=== PATIENT | male | born 1950 | race Caucasian/White ===

== ENCOUNTER 2017-03-28 02:18 | Emergency (ER) | payer MEDICARE, OTHER ==
--- NOTE | ~2017-03-28 | EKG ---
PATIENT: KRYSTLE CALZADA UNIT #: [id number] Ventricular Rate: 72 BPM Atrial Rate: 72 BPM P-R Interval: 146 ms QRS Duration: 108 ms Q-T Interval: 420 ms QTC Calculation(Bezet): 459 ms P [place]: 58 degrees Calculated R [place]: -44 degrees Calculated T [place]: 76 degrees Diagnosis Line: Normal sinus rhythm Diagnosis Line: Left axis deviation Diagnosis Line: Nonspecific ST and T wave abnormality Diagnosis Line: Abnormal ECG Diagnosis Line: When compared with ECG of 30-NOV-2016 06:54, Diagnosis Line: Premature ventricular complexes are no longer Diagnosis Line: Present Diagnosis Line: Inverted T waves have replaced nonspecific T wave Diagnosis Line: abnormality in Anterior leads Diagnosis Line: Confirmed by ELMIRA VU MD ([id number]) on Diagnosis Line: 03/29/2017 1:28:54 PM INTERPRETING MD: MIRELLA POSEY
--- NOTE | ~2017-03-28 | CR132 ---
[facility] A Service of [facility] RADIOLOGY TEXT RESULTS PATIENT: KRYSTLE CALZADA LOCATION: [facility] : 46 UNIT #: [id number] AGE: [address]: Allen Cárdenas MD SEX: M ORDER DR: [id number] [facility] [address] [place], [place] [address] [id number] MR#: [id number] Acc #: [id number] NAME: KRYSTLE CALZADA. : 1950 SEX: M STUDY DATE/TIME: 03/28/2017 0259 UNIT: [facility] ROOM: STUDY DESCRIPTION: CR Forearm 2 View Lt Attending Physician: Allen Cárdenas M.D. Ordering Physician: Allen Cárdenas M.D. Primary Care Physician: John Ceballos Jr., M.D. MEDICAL IMAGING REPORT This report is preliminary unless electronic signature is present EXAM Left forearm, 03/28 at 0259. INDICATION Forearm and wrist pain after a seizure tonight. FINDINGS 2 views of the left forearm were obtained. Arterial calcifications noted in the soft tissues. No fracture or malalignment is seen. There are 2 radiopaque foreign bodies near the elbow. 1 is adjacent to the proximal ulna on the medial side and the other is adjacent to the lateral epicondyle of the distal humerus. IMPRESSION No acute fracture or malalignment. 2 radiopaque foreign bodies, 1 near the proximal ulna on the medial side and 1 near the lateral epicondyle of the distal humerus. Correlate clinically for etiology. Dictated by... Galileo Patel Jr., M.D. THIS IS AN ELECTRONICALLY VERIFIED REPORT Galileo Patel Jr., M.D. at 03/28/2017 5:19 PM CHANCE/arnaldo TD: 03/28/2017 10:39 JOB #: [id number] MEDICAL IMAGING REPORT Page 1 of 1 COPY
--- NOTE | ~2017-03-28 | CT71 ---
[facility] A Service of [facility] RADIOLOGY TEXT RESULTS PATIENT: KRYSTLE CALZADA LOCATION: [facility] : 46 UNIT #: [id number] AGE: [address]: Allen Cárdenas MD SEX: M ORDER DR: [id number] [facility] [address] [place], [place] [address] [id number] E MR#: [id number] Acc #: [id number] NAME: KRYSTLE CALZADA. : 1950 SEX: M STUDY DATE/TIME: 03/28/2017 02:30 UNIT: [facility] ROOM: STUDY DESCRIPTION: CT Head Wo Contrast Attending Physician: Allen Cárdenas M.D. Ordering Physician: Allen Cárdenas M.D. Primary Care Physician: John Ceballos Jr., M.D. MEDICAL IMAGING REPORT This report is preliminary unless electronic signature is present EXAM Head CT 03/28/2017 at 04:15 hours. INDICATIONS Status post seizure this evening. Subsequent headache. TECHNIQUE FINDINGS Axial images were obtained from base to vertex without contrast. This CT exam was performed with one or more of the following radiation dose reduction techniques: automatic exposure control, adjustment of mA and/or kV according to patient size, and iterative reconstruction. COMPARISON Comparison made with 11/30/2016. FINDINGS Generalized atrophy is stable. Ventricular size and configuration are normal. There is no acute infarct or hemorrhage. There are no masses. Atherosclerotic calcifications are noted in the carotid siphons and vertebral arteries. No skull fracture. IMPRESSION No acute intracranial findings. No skull fracture. No change from prior. Dictated by... Galileo Patel Jr., M.D. THIS IS AN ELECTRONICALLY VERIFIED REPORT Galileo Patel Jr., M.D. at 03/28/2017 5:19 PM RLK/gz TD: 03/28/2017 10:52 [facility] A Service of [facility] RADIOLOGY TEXT RESULTS PATIENT: KRYSTLE CALZADA LOCATION: [facility] : 46 UNIT #: [id number] AGE: [address]: Allen Cárdenas MD SEX: M ORDER DR: DELL #: [id number] MEDICAL IMAGING REPORT Page 1 of 1 COPY
[~2017-03-28 02:18] MED LIST: ALBUTEROL 0.5ML INH; ALBUTEROL MININEB NEB; ALBUTEROL1.25 MG/3 INH; ALDACTONE PO; ALPRAZOLAM ER2 MG PO; ALPRAZOLAM PO; ANDRODERM1 EAC1 TD; ANTARA PO; ANTARA30 MG PO; APRESOLINE10 MG PO; ASPIRIN EC81 M1 PO; ASPIRIN PO; ASPIRIN81 MG PO; ATORVASTATIN CA10 MG PO; AZITHROMYCIN250 MG PO; AZITHROMYCIN500 MG PO; BAYER ASPIRIN325 M1 PO; BUMEX1 MG PO; CARAFATE1 G PO; CARAFATE1 GM PO; CARAMEL FLAVOR30 ML MC; CARVEDILOL6.25 MG PO; COREG PO; COREG12.5 MG PO; COREG3.125 MG PO; DILANTIN PO; DUONEB NEB; FAMOTIDINE20 M1 PO; FENOFIBRATE134 MG PO; FERRO-TIME325 MG PO; FERROUS GLUCON325 M1 PO; FERROUS SULFATE PO; GLIPIZIDE10 MG PO; GLIPIZIDE2.5 MG/BO1 PO; GLUCOTROL PO; GLUCOTROL XL PO; GLUCOTROL XL10 MG PO; HYDRALAZINE HCL25 MG PO; IRON1 TA1 PO; ISOSORBIDE DINI30 MG PO; K-DUR10 MEQ PO; LANTUS100 U/ML SUBQ; LANTUS100 UNITS/ SUBQ; LASIX PO; LASIX20 MG PO; LASIX80 MG PO; LEVAQUIN PO; LEVAQUIN750 MG PO; LEVOTHYROXINE50 MC1 PO; LIPITOR PO; LIPITOR80 MG PO; LISINOPRIL PO; LISINOPRIL20 MG PO; LOMOTIL TABLET1 TAB PO; LORTAB 10-3251 EACH PO; LORTAB 10/500 T1 TAB PO; LOVAZA1 G PO; METFORMIN HCL500 M1 PO; METFORMIN PO; METHADONE HCL10 MG PO; METHADONE PO; NITROGLYCERIN0.3 MG SL; NORCO 10-325 TA1 TAB PO; NOVOLIN N100 UNIT/1 SUBQ; NOVOLIN R100 UNITS/ SQ; NOVOLIN R100 UNITS/ SUBQ; NOVOLOG100 U/ML SUBQ; OMEGA 3 500 SO1 EACH PO; OMEGA 3 FISH1 CAP.EC PO; OMEPRAZOLE20 M1 PO; OMEPRAZOLE40 MG PO; OMNICEF300 MG PO; OXYCODONE HCL40 MG PO; OXYCONTIN PO; OXYCONTIN SR PO; OXYCONTIN40 MG; OXYCONTIN40 MG PO; OXYCONTIN80 MG PO; OXYGEN; PHENERGAN PO; PHENERGAN PR; PHENERGAN12.5 MG PO; PLAVIX PO; POTASSIUM CHLO10 ME1 PO; PREDNISONE5 M1 PO; PRILOSEC PO; PRILOSEC20 M1 PO; PRINIVIL10 MG PO; PROMETHAZINE HC25 MG PO; PROMETHAZINE12.5 MG PO; RAMIPRIL5 MG PO; REGLAN PO; REGLAN10 MG PO; REGLAN5 MG PO; SERTRALINE HCL1 GM PO; SERTRALINE HCL100 M1 PO; SERTRALINE HCL100 MG PO; SOMA PO; SOMA250 MG PO; SYNTHROID0.05 MG PO; TOPROL XL PO; TRILIPIX135 MG PO; VITAMIN D50000 UNIT PO; XANAX XR2 MG PO; XANAX1 MG PO; XANAX2 MG PO; ZESTRIL5 MG PO; ZOCOR PO; ZOLOFT PO; ZOLOFT100 MG PO; ZOLPIDEM TARTRA10 MG PO; ZOLPIDEM TARTRAT5 MG PO
[2017-03-28 03:24] LABS: INR 1.2; PROTHROMBIN TIME (PATIENT) 12.7 SECONDS (9.6-11.5)
[2017-03-28 03:31] LABS: POC - CKMB <1.0 ng/mL (0.0-7.9); POC - TROPONIN <0.05 ng/mL (<=0.05)
[2017-03-28 03:32] LABS: ALBUMIN SERUM 3.4 g/dL (3.5-5.0); BILIRUBIN,TOTAL 0.5 mg/dL (0.2-2.0); BUN/CREATININE RATIO 13.75; CALCIUM SERUM 8.5 mg/dL (8.4-10.2); CREATININE SERUM 1.6 mg/dL (0.6-1.4); GLOM FILT RATE Estimated 43.6 mL/min (>60); POTASSIUM 3.6 mmol/L (3.5-5.1); PROTEIN TOTAL SERUM 6.8 g/dL (6.0-8.3)
[2017-03-28 05:15] LABS: BASOPHIL# 0.1 X10e3 (0-0.3); BASOPHIL% 0.8 % (0-2.5); EOSINOPHIL# 0.4 X10e3 (0-0.7); EOSINOPHIL% 3.1 % (0.0-7.0); HEMATOCRIT 37.4 % (38.0-50.0); LYMPHOCYTE# 1.4 X10e3 (1.0-3.5); LYMPHOCYTE% 10.2 % (17.0-45.0); MEAN CELL VOLUME 90.4 FL (83-96); MEAN CORPUSCULAR HGB CONC 32.1 g/dL (30-36); MEAN PLATELET VOLUME 10.4 FL (6.5-11.5); MONOCYTE# 1.1 X10e3 (0-1.0); MONOCYTE% 8.6 % (3.0-12.0); NEUTROPHIL# 10.2 X10e3 (1.5-7.1); NEUTROPHIL% 77.3 % (40-75); PLATELET COUNT 108 X10e3 (140-420); RED BLOOD COUNT 4.14 X10e (3.90-5.60); RED CELL DISTRIBUTION WIDTH 17.7 % (11.0-15.5); WHITE BLOOD COUNT 13.2 X10e3 (4.0-10.5)
[2017-03-28 05:37] LABS: DIFF IND NO
== END 2017-03-28 05:00 | disposition home or self-care (01) ==
LOC: CED 02:18
PROVIDERS: Emergency Medicine
DX: R25.8 Other abnormal involuntary movements (principal); Z23 Encounter for immunization; I11.0 Hypertensive heart disease with heart failure; I50.9 Heart failure, unspecified; F41.9 Anxiety disorder, unspecified; Z90.49 Acquired absence of other specified parts of digestive tract
CPT/HCPCS: 36415; 70450; 73090; 80053; 82553; 84484; 85025; 85610; 87040; 90471; 90715; 93005; 96374; 99284; J2060

== ENCOUNTER 2017-03-31 15:41 | Emergency (ER) | payer MEDICARE, OTHER | END 2017-03-31 18:15 | disposition home or self-care (01) | LOC: CED 15:41 | DX: F41.1 Generalized anxiety disorder (principal); F19.10 Other psychoactive substance abuse, uncomplicated; E11.9 Type 2 diabetes mellitus without complications; F32.9 Major depressive disorder, single episode, unspecified; Z90.49 Acquired absence of other specified parts of digestive tract; Z95.1 Presence of aortocoronary bypass graft; Z79.82 Long term (current) use of aspirin; Z79.4 Long term (current) use of insulin; Z79.899 Other long term (current) drug therapy | CPT/HCPCS: 99283 ==

== ENCOUNTER 2017-04-28 11:48 | Emergency (ER) | payer MEDICARE, OTHER ==
--- NOTE | ~2017-04-28 | ER ---
Unit #: [id number] #: [id number] Patient: KRYSTLE DE [id number] [address] [place], [place] [address] [id number] E MR#: [id number] NAME: KRYSTLE DE ROOM: Sex: M Age: 66 : 1950 Service Date: 04/28/2017 Attending Physician: Mannie López M.D. Primary Care Physician: John Ceballos Jr., M.D. EMERGENCY DEPT PHYSICIAN NOTE HISTORY Please see the written T sheet for the full details of the encounter. Mr. De is a 66-year-old man who has a long history of chronic pain, maintained on opiates, and a longstanding anxiety disorder that was previously managed with high doses of Xanax. The patient signed in to the emergency department today with the complaint of "I feel like I am going to have a seizure." The patient stated that he felt as though he may have a seizure related to benzodiazepine withdrawal, as he had not had any of his medication for some time. Previous records were reviewed showing that the patient had had admissions to the hospital in the past related to encephalopathy related to his high doses of pain and anxiety medicines coupled with the patient abusing said medications. Per the patient's report, he was prescribed Xanax 2 mg previously; however, he says that his doctor refused to refill any more prescriptions due to the patient abusing his medication and taking well over the prescribed amount monthly. The last time the patient filled a prescription for Xanax, as shown in the [facility] report, was 03/03/17. Subsequently the patient presented to the emergency department on 03/28/2017 complaining that he had had a seizure, which he attributed to withdrawal from benzodiazepines. A complete workup was undertaken, which showed no acute abnormalities or any abnormality that would give an alternative explanation for having a seizure. At that time, presumably to prevent benzodiazepine withdrawal, a tapered dose of Ativan was written. The patient was given 2 mg and told to take up to 2 today with the intent to taper as tolerated. However, the patient returned just 3 days later stating that he had taken all of the previously prescribed Ativan, apparently not taking it according to the discharge instructions. At that time in the ER it was explained to the patient that, with his history of abuse of these medications, no medication would be prescribed for him while he was here; however, he was given p.o. Librium and offered consultation with [facility] should he desire it for treatment of benzodiazepine withdrawal. He refused [facility] and was, therefore, discharged from the ER at that time. Reviewing the [facility] report, it shows that the patient, on the following day, was seen at [facility] Emergency Department and was prescribed nine 1 mg Ativan tablets on 04/01. According to the [facility] report, that was the last time the patient has filled any benzodiazepines. The patient Unit #: [id number] #: [id number] Patient: KRYSTLE ED presented today with the aforementioned complaint of feeling as though he may have a seizure. I confronted the patient about the fact that he had been going to multiple different emergency departments in an attempt to be prescribed benzodiazepines and that I had very low suspicion for withdrawal seizures, as he had not filled a prescription for any kind of benzodiazepines in approximately 1 month. The patient was evasive about this and initially denied going to any other ERs until I told him that I had documented proof of this. He later admitted but said that this felt similar to times when he had had a withdrawal seizure from his benzodiazepines. On exam the patient appeared tremulous and anxious; however, he had a completely normal neurological exam. Vital signs were all stable. I explained to the patient that, given his history of obtaining multiple benzodiazepine prescriptions from multiple different providers, I had high suspicion for abuse of these medications and, therefore, would not be ultimately giving him any in the emergency department, nor would I write any prescriptions for benzodiazepines. At this, the patient stated, "Well, if you are not going to give me any medicine, then I am just going to leave." I, again, reiterated to the patient that I would be more than happy to work up his complaint of possible seizure. However, if his primary intent was to obtain benzodiazepines, I would not be able to accommodate this. I offered to treat him with alternative medications for his anxiety, and the patient, at least initially, seemed amenable to this. However, when I left the room, shortly thereafter the patient was dressed and stating that he wanted to leave. He did not stay to be counselled about his decision to leave nor to sign his AMA documents. Dictated by... Ashley Mnotoya/gene TD: 04/28/2017 13:11 JOB #: [id number] EMERGENCY DEPT PHYSICIAN NOTE Page 1 of 1 X Mannie López MD X EMERGENCY DEPARTMENT REPORT
== END 2017-04-28 12:35 | disposition left against medical advice (07) ==
LOC: CED 11:48
DX: F41.1 Generalized anxiety disorder (principal); I25.2 Old myocardial infarction; I11.0 Hypertensive heart disease with heart failure; I50.9 Heart failure, unspecified; E78.5 Hyperlipidemia, unspecified; Z90.49 Acquired absence of other specified parts of digestive tract; Z76.5 Malingerer [conscious simulation]; Z90.89 Acquired absence of other organs
CPT/HCPCS: 99283